=== PATIENT | male | born 1990 | race Caucasian/White ===

== ENCOUNTER 2019-03-30 10:39 | Emergency (ER) | payer BC, OTHER ==
[2019-03-30] MEDS ORDERED: Tetan/Diph/Pertus SYR(Tdap)* 0.5 ML SYR(BOOSTRIX) use SYR contains LATEX IM ONE (10:43)
--- NOTE | 2019-03-30 10:44 | UC ---
Laceration HPI - HPI Summary HPI Summary: 28-year-old male who sustained a laceration to his right index finger over the knuckle by a piece of metal this morning. Tetanus is not up-to-date. - History Of Current Complaint Stated Complaint: FINGER LAC Time Seen by Provider: 03/30/19 10:43 Hx Obtained From: Patient Laceration Location: Finger - Right index finger midportion of the dorsal aspect Mechanism Of Injury: Sharp Trauma Onset/Duration: Sudden Onset Severity: Mild Aggravating Factors: Movement - Allergies/Home Medications Allergies/Adverse Reactions: Allergies Allergy/AdvReac Type Severity Reaction Status Date / Time Legumes Allergy Severe Anaphylatic Uncoded 03/30/19 10:47 Shock Peanuts Allergy Severe Anaphylatic Uncoded 03/30/19 10:47 Shock PMH/Surg Hx/FS Hx/Imm Hx Previously Healthy: Yes Respiratory History: Asthma Other History Of: Negative For: Anticoagulant Therapy - Family History Known Family History: Positive: Non-Contributory - Social History Alcohol Use: Weekly Substance Use Type: None Smoking Status (MU): Never Smoked Tobacco Review of Systems All Other Systems Reviewed And Are Negative: Yes Skin: Positive: Other - Laceration dorsal aspect right index finger midportion. Is Patient Immunocompromised?: No Physical Exam Triage Information Reviewed: Yes Appearance: Well-Appearing, No Pain Distress, Well-Nourished Vital Signs Reviewed: Yes Musculoskeletal: Positive: Strength Intact, ROM Intact - Good peripheral pulses neuro sensation capillary refill. Full range of motion against resistance with flexion and extension of the distal finger middle finger and proximal finger. Neurological: Positive: Alert, Muscle Tone Normal Psychological Exam: Normal Skin: Positive: Other - Approximately 1.0 cm laceration over the midportion of the right index finger. Laceration Course/Dx - Course/Dx Course Of Treatment: Patient was given Tdap tetanus immunization He was given a digital nerve block with lidocaine 1% plain and after 15 minutes he had good anesthesia. The wound was probed and no foreign bodies were noted. The patient had good flexion and extension against resistance I don't believe he lacerated a tendon. It was sutured using 40 proline and sutures placed numbered 5. A dry sterile bulky dressing was then applied. He is to follow-up with his primary care provider in 12 days and signs of infection were reviewed with the patient. - Diagnosis Provider Diagnosis: Laceration of index finger of right hand without complication Discharge ED - Sign-Out/Discharge Documenting (check all that apply): Patient Departure All imaging exams completed and their final reports reviewed: No Studies - Discharge Plan Condition: Good Disposition: HOME Patient Education Materials: Care For Your Stitches (DC) Referrals: Brennan Reza MD [Primary Care Provider] - Additional Instructions: Call your doctor today and make an appointment for approximately 12 days from now to have sutures removed. Watch for signs of infection such as hot, red, tender, pus drainage, red streaks up your finger. Follow-up with your primary care provider if you experience signs of infection. Keep the bulky dressing on for 24 hours and then change daily but do a bulky dressing to keep your finger from bending a lot. You were given a Tdap tetanus immunization which is good for 8-10 years. Keep your hand elevated as much as possible and if you see bleeding to dressing apply pressure and elevation. - Billing Disposition and Condition Condition: GOOD Disposition: Home
[2019-03-30 10:46] VITALS: BP 127/79
[2019-03-30] MEDS ORDERED: Lidocaine 1% MPF ** 5 ML VIAL INJ ONE (11:01)
== END 2019-03-30 12:21 | disposition home or self-care (01) ==
LOC: UCEAST 10:39
DX: S61.210A Laceration without foreign body of right index finger without damage to nail, initial encounter (principal); J45.909 Unspecified asthma, uncomplicated; Z91.010 Allergy to peanuts; Z91.018 Allergy to other foods; Z23 Encounter for immunization; W26.8XXA Contact with other sharp object(s), not elsewhere classified, initial encounter; Y92.9 Unspecified place or not applicable
CPT/HCPCS: 12001; 90715; 99201; G0463